=== PATIENT | male | born 1990 | race American Indian/Alaskan Native ===

== ENCOUNTER 2018-06-21 12:14 | Emergency (ER) | payer SELFPAY ==
--- NOTE | 2018-06-21 12:23 | Emergency Department Report ---
Blank Doc - Documentation Documentation: This is a 28-year-old male brought by mother for mental health evaluation. MO ther stated that patient has been acting different. Patient denies that he is acting different. Patient denies any SI/HI. This initial assessment/diagnostic orders/clinical plan/treatment(s) is/are subject to change based on patient's health status, clinical progression and re- assessment by fellow clinical providers in the ED. Further treatment and workup at subsequent clinical providers discretion. Patient/guardians urged not to elope from the ED as their condition may be serious if not clinically assessed and managed. Initial orders include: 1- Patient sent to [facility] for further evaluation and treatment 2- labs 3- UA
[2018-06-21 12:48] LABS: Bilirubin,Urine NEG (Negative); Blood,Urine NEG (Negative); Color,Urine Yellow (Yellow); Mucus,Urine FEW /HPF; Protein,Urine <15 mg/dL mg/dL (Negative); Sperm,Urine FEW /HPF (NP)
[2018-06-21 12:49] LABS: WBC,Urine < 1.0 /HPF (0.0-6.0)
[2018-06-21 12:52] LABS: Amphetamine Screen,Urine PRESUMPTIVE NEGATIVE; Benzodiazepines Screen,Urine PRESUMPTIVE NEGATIVE; Cocaine Screen,Urine PRESUMPTIVE NEGATIVE; Methadone Screen,Urine PRESUMPTIVE NEGATIVE; Opiate Screen,Urine PRESUMPTIVE NEGATIVE
[2018-06-21 12:57] LABS: Basophils % (Auto) 0.5 % (0.0-1.8); Eosinophils # (Auto) 0.3 K/mm3 (0.0-0.4); Hematocrit 47.4 % (35.5-45.6); Hemoglobin 15.9 gm/dl (11.8-15.2); Lymphocytes # (Auto) 1.4 K/mm3 (1.2-5.4); Lymphocytes % (Auto) 24.3 % (13.4-35.0); Mean Corpuscular HGB Conc 34 % (32-34); Mean Corpuscular Volume 90 fl (84-94); Monocytes # (Auto) 0.6 K/mm3 (0.0-0.8); Monocytes % (Auto) 9.3 % (0.0-7.3); Platelet Count 123 K/mm3 (140-440); Red Blood Count 5.27 M/mm3 (3.65-5.03); Red Cell Distribution Width 13.5 % (13.2-15.2)
[2018-06-21 13:33] LABS: BUN/Creatinine Ratio 10; Blood Urea Nitrogen 10 mg/dL (9-20); Calcium 9.3 mg/dL (8.4-10.2); Hemolysis Index 8
[2018-06-21 14:02] LABS: Cannabinoid Screen,Urine PRESUMPTIVE POSITIVE
--- NOTE | 2018-06-21 14:29 | Emergency Department Report ---
ED Psych HPI - General Chief Complaint: Psych Stated Complaint: MH EVAL Time Seen by Provider: 06/21/18 12:18 Source: patient Mode of arrival: Ambulatory - History of Present Illness Initial Comments: 28-year-old male brought in by mother for mental health evaluation. No previous history of psychiatric illness. Mother states over the last year patient seemed to be "off balance." Mother states the patient left college, is not working, appears to have auditory hallucinations, insomnia, frequently paces the house at night, does not bathe regularly. Mother reports family history of bipolar/ depression/ schizophrenia on her side of the family. Patient denies SI, HI, hallucinations. Reports marijuana use. -: year(s) (1) Associated Psychiatric Symptoms: auditory hallucinations Quality: intermittent Improves With: none Worsens With: none Context: recent drug abuse Associated Symptoms: insomnia Treatments Prior to Arrival: none - Related Data Home Medications Medication Instructions Recorded Confirmed Last Taken No Known Home Medications [No 06/21/18 06/21/18 Unknown Reported Home Medications] Allergies Allergy/AdvReac Type Severity Reaction Status Date / Time No Known Allergies Allergy Verified 06/21/18 15:54 ED Review of Systems ROS: Stated complaint: MH EVAL Other details as noted in HPI Comment: All other systems reviewed and negative Psychiatric: denies: auditory hallucinations, visual hallucinations, homicidal thoughts, suicidal thoughts ED Past Medical Hx - Past Medical History Previous Medical History?: Yes Hx Asthma: Yes - Surgical History Past Surgical History?: No - Social History Smoking Status: Never Smoker Substance Use Type: Marijuana - Medications Home Medications: Home Medications Medication Instructions Recorded Confirmed Last Taken Type No Known Home Medications [No 06/21/18 06/21/18 Unknown History Reported Home Medications] ED Physical Exam - General Limitations: No Limitations General appearance: alert, in no apparent distress - Head Head exam: Present: atraumatic, normocephalic - Eye Eye exam: Present: normal appearance - ENT ENT exam: Present: mucous membranes moist - Neck Neck exam: Present: normal inspection - Respiratory Respiratory exam: Present: normal lung sounds bilaterally. Absent: respiratory distress - Cardiovascular Cardiovascular Exam: Present: normal rhythm, tachycardia - GI/Abdominal GI/Abdominal exam: Absent: distended - Extremities Exam Extremities exam: Present: normal inspection, full ROM - Neurological Exam Neurological exam: Present: alert, oriented X3 - Psychiatric Psychiatric exam: Present: normal affect, normal mood - Skin Skin exam: Present: warm, dry, intact, normal color ED Course Vital Signs 06/21/18 06/21/18 12:20 13:56 Temperature 98.4 F Pulse Rate 107 H Respiratory 20 18 Rate Blood Pressure 126/95 O2 Sat by Pulse 98 Oximetry ED Medical Decision Making - Lab Data Result diagrams: 06/21/18 12:29 06/21/18 12:29 - Radiology Data Radiology results: report reviewed, image reviewed - Medical Decision Making 28-year-old male with new-onset psychosis. Labs unremarkable except for her drug screen which is positive for marijuana. CT head normal. Patient placed on a 1013. He is medically clear for mental health evaluation. Will dispo per psych. Critical care attestation.: If time is entered above; I have spent that time in minutes in the direct care of this critically ill patient, excluding procedure time. ED Disposition Clinical Impression: Psychosis, Marijuana abuse Disposition: [id number]/[facility] HOSP/PSY UNIT Is pt being admited?: No Condition: Stable Referrals: STEVEN JULIAN MD [Primary Care Provider] - 3-5 Days
--- NOTE | 2018-06-21 17:21 | Cat Scan Report ---
PROCEDURE: CT HEAD/BRAIN WO CON HISTORY: psychosis COMPARISONS: FINDINGS: Unenhanced CT of the brain was performed and demonstrates no acute intracranial hemorrhage, extra-axial fluid collection, midline shift or mass effect. The ventricles and basal cisterns are no t effaced. The mastoid air cells and middle ears appear clear. There is sinus mucosal thickening without acute s inusitis. IMPRESSION: No acute intracranial hemorrhage This document is electronically signed by Harjeet Mancia MD., June 21 2018 05:19:28 PM ET
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
[2018-06-24] MEDS ORDERED: PHENERGAN PO ONE (14:37)
--- NOTE | 2018-06-24 18:16 | Progress Note ---
Subjective - Reason for Consult Consult date: 06/24/18 Reason for consult: follow up - Chief Complaint Chief complaint: "I'm good." Patient is a 28 y.o. AA male who presented to the ER for bizarre behavior. Today the patient is calm and cooperative during the assessment. He is euhoric and denies any problems. He does not recall his initial presentation. He denies SI/HI. Mental Status Exam - Vital signs Last Vital Signs Temp 98.1 F 06/24/18 15:11 Pulse 98 H 06/24/18 15:11 Resp 17 06/24/18 15:11 BP 137/101 06/24/18 15:11 Pulse Ox 98 06/24/18 15:11 Assessment and Plan Behavior: fair eye contact, superficial interaction Speech: regular rate with rhythm Mood:: " I'm good" Affect: congruent to mood Thought Process: logical Thought Content: denies SI/HI's and AVH's; delusions of grandeur Motor Activity: ambulatory Cognition: A/O x 3 Insight: vague Judgment: poor Assessment and Plan Impression: Unspecified Psychosis. Cannabis Use DO. Today the patient is calm and cooperative during the assessment. Continues to be guarded/vague throughout the assessment. DDx: Bipolar DO with psychosis, Schizophrenia, Substance Induced Psychotic DO Recommendation/Plan: 1. Continue 1013. 2. Continue Zypreexa 5 m g PO HS for psychosis. Discussed possible metabolic side effects of Zyprexa with the patient. Disposition: The patient was referred to inpatient psychiatric services. Will staff with Dr. Hallie Guadalupe.
[2018-06-25 08:16] VITALS: BP 122/75
== END 2018-06-25 10:06 ==
LOC: ED 12:14 → EEVIPCON 12:14 → ED 06-25 10:06
DX: F29 Unspecified psychosis not due to a substance or known physiological condition (principal); F12.10 Cannabis abuse, uncomplicated; J45.909 Unspecified asthma, uncomplicated
CPT/HCPCS: 36415; 70450; 80048; 80307; 81001; 85025; 99285; G0480; 80320; Q0169